=== PATIENT | male | born 1955 | race African-American/Black ===

== ENCOUNTER 2023-03-01 03:48 | Inpatient (IN) | payer BC ==
[2023-03-01 04:24] LABS: #Monocytes 0.4 thou/uL (0.11-0.59); #Neutrophils 8.1 thou/uL (1.40-6.50); %Basophils 0.1 % (0.0-1.0); %Lymphocytes 2.8 % (21.0-51.0); %Neutrophils 91.4 % (42.0-75.0); Hemoglobin 14.1 g/dL (14.0-18.0); Mean Corpuscular HGB CONC 33.1 g/dL (32.0-36.0); Mean Corpuscular Volume 93.6 fl (78.0-98.0); Mean Platelet Volume 10.9 fL (7.4-10.4); Platelet Count 143 10x3/uL (130-400); RBC Distribution Width 13.3 % (11.5-14.5); Red Blood Cell (RBC) Count 4.55 mill/uL (4.70-6.10); White Blood Cell (WBC) Count 8.9 10x3/uL (4.8-10.8)
[2023-03-01 04:47] LABS: ALT (SGPT) 41 U/L (8-55); AST (SGOT) 39 U/L (5-34); Albumin 3.9 g/dL (3.4-4.8); Alkaline Phosphatase 117 U/L (40-110); Anion Gap 17 mmol/L (10-20); BUN (Urea Nitrogen) 13 mg/dL (8.4-25.7); Bilirubin, Total 2.4 mg/dL (0.2-1.2); Calc. Creatinine Clearance 0 mL/min (70-130); Calcium 8.8 mg/dL (7.8-10.44); Carbon Dioxide 21 mmol/L (23-31); Chloride 104 mmol/L (98-107); Estimated GFR 57; Globulin 3.1 g/dL (2.4-3.5); Glucose 138 mg/dL (80-115); Potassium 3.1 mmol/L (3.5-5.1); Sodium 139 mmol/L (136-145)
[2023-03-01 05:08] LABS: SARS-CoV-2 NAA Rapid Test Not Detected (NotDetected)
[2023-03-01 05:11] LABS: CKMB 0.5 ng/mL (0-6.6)
[2023-03-01] MEDS ORDERED: Electrolyte Replacement Protocol 1 EACH FS SCH (05:15)
[2023-03-01] MEDS ORDERED: Ondansetron ODT 4 MG TAB PO PRN (05:18)
[2023-03-01] MEDS ORDERED: Acetaminophen 325 MG TAB PO PRN (05:18)
[2023-03-01] MEDS ORDERED: Nitroglycerin 2% Ointment 1 INCH/1 GM Packet ONE (05:22)
[2023-03-01 06:13] LABS: Magnesium 1.6 mg/dL (1.6-2.6)
[2023-03-01] MEDS ORDERED: Potassium Chloride 20 MEQ TAB PO SCH (08:00)
[2023-03-01] MEDS ORDERED: Magnesium 2 GM/50 ML(in water) 2 GM in Premix Bag 1 BAG IVPB SCH (08:00)
[2023-03-01 08:18] LABS: Troponin I 0.014 ng/mL (< 0.028)
[2023-03-01] MEDS ORDERED: Aspirin Chewable 81 MG TAB PO SCH (09:00)
[2023-03-01] MEDS ORDERED: Lisinopril 2.5 MG TAB PO SCH ×2 (09:00→10:15)
[2023-03-01] MEDS ORDERED: Furosemide 40 MG/4 ML VIAL SLOW IVP SCH (09:00)
[2023-03-01] MEDS ORDERED: Carvedilol 3.125 MG TAB PO SCH (09:00)
[2023-03-01 09:21] VITALS: BMI 31.1
[2023-03-01] MEDS: Famotidine 20 MG TAB PO SCH ×2 (09:31→20:52)
[2023-03-01] MEDS ORDERED: Aspirin 81 mg Enteric Coated Tablet PO SCH (10:15)
[2023-03-01] MEDS ORDERED: Spironolactone 25 MG TAB PO SCH (10:15)
[2023-03-01 11:27] LABS: Troponin I 0.018 ng/mL (< 0.028)
[2023-03-01] MEDS: Furosemide 40 MG/4 ML VIAL SLOW IVP SCH (14:00)
[2023-03-01] MEDS: Potassium Chloride 20 MEQ TAB PO SCH (16:38)
[2023-03-01] MEDS: Lisinopril 5 MG TAB PO SCH (20:52)
[2023-03-02 04:32] LABS: Hemoglobin 13.4 g/dL (14.0-18.0); Mean Corpuscular HGB CONC 33.3 g/dL (32.0-36.0); Mean Corpuscular Hemoglobin 30.7 pg (27.0-31.0); Mean Corpuscular Volume 92.4 fl (78.0-98.0); Mean Platelet Volume 10.7 fL (7.4-10.4); Platelet Count 126 10x3/uL (130-400); RBC Distribution Width 13.3 % (11.5-14.5); Red Blood Cell (RBC) Count 4.36 mill/uL (4.70-6.10); White Blood Cell (WBC) Count 12.6 10x3/uL (4.8-10.8)
[2023-03-02 04:48] LABS: Hemoglobin A1c 5.5 % (4.0-6.0)
[2023-03-02 04:50] LABS: ALT (SGPT) 35 U/L (8-55); AST (SGOT) 17 U/L (5-34); Albumin 3.7 g/dL (3.4-4.8); Alkaline Phosphatase 97 U/L (40-110); Anion Gap 14 mmol/L (10-20); BUN (Urea Nitrogen) 30 mg/dL (8.4-25.7); Bilirubin, Total 0.7 mg/dL (0.2-1.2); Calc. Creatinine Clearance 75 mL/min (70-130); Calcium 8.5 mg/dL (7.8-10.44); Carbon Dioxide 24 mmol/L (23-31); Cardiac Risk 3.4 (Less than 4.5); Chloride 103 mmol/L (98-107); Cholesterol 108 mg/dl (< 200 Desired); Estimated GFR 45; Glucose 138 mg/dL (80-115); HDL Cholesterol 32 mg/dL (>60 Neg Risk); LDL Cholesterol, Calculated 68 mg/dL; Magnesium 2.2 mg/dL (1.6-2.6); Potassium 3.9 mmol/L (3.5-5.1); Protein, Total 6.7 g/dL (5.8-8.1); Sodium 137 mmol/L (136-145); Triglycerides 42 mg/dL (Less than 150)
[2023-03-02] MEDS: Furosemide 40 MG/4 ML VIAL SLOW IVP SCH (05:34)
[2023-03-02] MEDS ORDERED: Spironolactone 25 MG TAB PO SCH (08:00)
[2023-03-02] MEDS: Famotidine 20 MG TAB PO SCH ×2 (08:10→20:04)
[2023-03-02] MEDS: Carvedilol 6.25 MG TAB PO SCH ×2 (08:10→17:06)
[2023-03-02] MEDS: Lisinopril 5 MG TAB PO SCH ×2 (08:10→20:04)
[2023-03-02] MEDS: Aspirin 81 mg Enteric Coated Tablet PO SCH (08:10)
[2023-03-02] MEDS: Potassium Chloride 20 MEQ TAB PO SCH (08:10)
[2023-03-02] MEDS ORDERED: Potassium Chloride 20 MEQ TAB PO SCH (09:17)
[2023-03-03 05:45] LABS: #Monocytes 0.5 thou/uL (0.11-0.59); #Neutrophils 4.5 thou/uL (1.40-6.50); %Basophils 0.2 % (0.0-1.0); %Eosinophils 0.5 % (0.0-10.0); %Lymphocytes 16.8 % (21.0-51.0); %Monocytes 7.9 % (0.0-10.0); %Neutrophils 74.1 % (42.0-75.0); Hemoglobin 13.5 g/dL (14.0-18.0); Mean Corpuscular HGB CONC 32.7 g/dL (32.0-36.0); Mean Corpuscular Hemoglobin 30.9 pg (27.0-31.0); Mean Corpuscular Volume 94.5 fl (78.0-98.0); Mean Platelet Volume 11.3 fL (7.4-10.4); Platelet Count 144 10x3/uL (130-400); RBC Distribution Width 13.2 % (11.5-14.5); Red Blood Cell (RBC) Count 4.37 mill/uL (4.70-6.10); White Blood Cell (WBC) Count 6.1 10x3/uL (4.8-10.8)
[2023-03-03 06:08] LABS: Anion Gap 11 mmol/L (10-20); BUN (Urea Nitrogen) 26 mg/dL (8.4-25.7); Calc. Creatinine Clearance 107 mL/min (70-130); Calcium 8.2 mg/dL (7.8-10.44); Carbon Dioxide 27 mmol/L (23-31); Chloride 103 mmol/L (98-107); Estimated GFR 68; Glucose 102 mg/dL (80-115); Potassium 3.7 mmol/L (3.5-5.1); Sodium 137 mmol/L (136-145)
[2023-03-03 07:28] VITALS: BP 134/86; TEMP 98
[2023-03-03] MEDS ORDERED: Furosemide 40 MG TAB PO SCH (07:30)
[2023-03-03] MEDS ORDERED: Potassium Chloride 20 MEQ TAB PO SCH (08:00)
[2023-03-03] MEDS: Carvedilol 6.25 MG TAB PO SCH (09:31)
[2023-03-03] MEDS: Aspirin 81 mg Enteric Coated Tablet PO SCH (09:31)
[2023-03-03] MEDS: Famotidine 20 MG TAB PO SCH (09:31)
[2023-03-03] MEDS: Lisinopril 5 MG TAB PO SCH (09:31)
== END 2023-03-03 11:15 | disposition home or self-care (01) | DRG 291 ==
LOC: ERS 03:48 → 2SE 05:22
PROVIDERS: ADMIT Student in an Organized Health Care Education/Training Program; ATTEND Family Medicine
DX: I13.0 Hypertensive heart and chronic kidney disease with heart failure and stage 1 through stage 4 chronic kidney disease, or unspecified chronic kidney disease (principal); I50.33 Acute on chronic diastolic (congestive) heart failure; J96.01 Acute respiratory failure with hypoxia; N17.9 Acute kidney failure, unspecified; N18.30 Chronic kidney disease, stage 3 unspecified; E87.6 Hypokalemia; K76.1 Chronic passive congestion of liver; Z20.822 Contact with and (suspected) exposure to COVID-19; Z79.899 Other long term (current) drug therapy; Z79.82 Long term (current) use of aspirin
CPT/HCPCS: 36415; 71045; 80048; 80053; 80061; 82553; 83036; 83605; 83735; 83880; 84443; 84484; 85025; 93005; 93010; 93306; 93798; J1940; J3475